=== PATIENT | female | born 1975 | race Asian ===

== ENCOUNTER 2017-01-16 05:10 | Day surgery (SDC) | payer OTHER ==
[2017-01-16] MEDS ORDERED: SUCCINYLCHOLINE CHLORIDE 200 MG/10 ML VIAL ONE (08:09)
[2017-01-16] MEDS ORDERED: MIDAZOLAM HCL 2 MG/2 ML SINGLE DOSE VIAL ONE (08:09)
[2017-01-16] MEDS ORDERED: PROPOFOL 20 ML ONE (08:09)
[2017-01-16] MEDS ORDERED: IBUPROFEN 800 MG/8 ML IJ IVPB PRN (08:15)
--- NOTE | 2017-01-16 08:15 | HP ---
Admitting History and Physical - Admission History of Present Illness: 41 yo desiring permanent sterilization rejects all forms of non-permanent control s/p right salpingectomy in the past History Source: Patient Limitations to Obtaining History: No Limitations - Past Medical History Cardiovascular: Yes: HTN Pulmonary: No: Asthma Gastrointestinal: No: GERD ...LMP: 01/06/17 ...: No Heme/Onc: No: Anemia - Past Surgical History Additional Past Surgical History: CD x 3 LS R salingectomy LS cholecystectomy - Smoking History Smoking history: Never smoked Have you smoked in the past 12 months: No Aproximately how many cigarettes per day: 0 - Alcohol/Substance Use Hx Alcohol Use: No - Social History History of Recent Travel: No Home Medications - Allergies Allergies/Adverse Reactions: Allergies Allergy/AdvReac Type Severity Reaction Status Date / Time No Known Allergies Allergy Verified 01/16/17 07:11 - Home Medications Home Medications: Ambulatory Orders Ferrous Sulfate [Feosol] 325 mg PO DAILY #0 tablet 08/06/12 Amlodipine Besylate 5 mg PO DAILY 01/13/17 Ascorbic Acid [Vitamin C -] 500 mg PO DAILY 01/13/17 Cholecalciferol (Vitamin D3) [Vitamin D3 -] 1,000 unit PO DAILY 01/13/17 Nitrofurantoin Macrocrystal [Nitrofurantoin] 100 mg PO BID 01/13/17 Valsartan 160 mg PO DAILY 01/13/17 Family Disease History - Family Disease History Family History: Denies Review of Systems - Review of Systems Constitutional: reports: No Symptoms Cardiovascular: reports: No Symptoms Respiratory: reports: No Symptoms Gastrointestinal: reports: No Symptoms Genitourinary: reports: No Symptoms Musculoskeletal: reports: No Symptoms Integumentary: reports: No Symptoms Neurological: reports: No Symptoms Endocrine: reports: No Symptoms Psychiatric: reports: No Symptoms Physical Examination Vital Signs: Vital Signs Temperature 98.2 F 01/16/17 07:07 Pulse Rate 74 01/16/17 07:07 Respiratory Rate 20 01/16/17 07:07 Blood Pressure 113/72 01/16/17 07:07 O2 Sat by Pulse Oximetry (%) 99 01/16/17 07:06 Constitutional: Yes: Well Nourished, No Distress, Calm Cardiovascular: Yes: Regular Rate and Rhythm Respiratory: Yes: Regular, CTA Bilaterally Gastrointestinal: Yes: Normal Bowel Sounds, Soft Edema: No Integumentary: Yes: WNL Psychiatric: Yes: Alert, Oriented Assessment/Plan 41 yo for permanent sterilization, plan for ls left salpingectomy, possible bilateral salpingectomy 1. Reviewed risks of surgery including infection, bleeding damage to surrounding organs such as bowel, bladder and ureters. Discussed increasesd risk of surgical complication given hx/o multiple surgeries. Reviewed salpingectomy v tubal ligation, decreased risk of ovarian/ fallopian tube malignancy 2. Will proceed with OR
[2017-01-16] MEDS ORDERED: ceFAZolin SODIUM 1 GM VIAL IVPB ONE (08:30)
[2017-01-16] MEDS ORDERED: ROCURONIUM BROMIDE 50 MG/5 ML VIAL ONE (08:31)
[2017-01-16] MEDS ORDERED: ceFAZolin SODIUM 1 GM VIAL ONE (08:34)
[2017-01-16] MEDS ORDERED: DEXAMETHASONE SOD PHOSPHATE 4 MG/1 ML VIAL ONE (08:35)
[2017-01-16] MEDS ORDERED: ePHEDrine SULFATE 50 MG/1 ML AMPULE ONE (08:39)
[2017-01-16] MEDS ORDERED: HYDROmorphone HCL/PF 1 MG/ML VIAL (FOR PYXIS CHARGING ONLY) ONE (08:59)
[2017-01-16] MEDS ORDERED: ALBUTEROL SO4 6.7 GM HFA INHALER IH ONE (09:07)
[2017-01-16] MEDS ORDERED: GLYCOPYRROLATE 0.2 MG/1 ML VIAL ONE (09:26)
[2017-01-16] MEDS ORDERED: NEOSTIGMINE METHYLSULFATE 0.5 MG/ML - 10 ML MDV ONE (09:26)
--- NOTE | 2017-01-16 09:45 | OP ---
Operative Note - Note: Operative Date: 01/16/17 Pre-Operative Diagnosis: desiring permanent sterilization Operation: laparoscopic left salpingectomy Findings: absent right fallopian tubes, normal ovaries bilaterally, normal left fallopian tube, adhesions anterior lower uterine segment and right adnexa Post-Operative Diagnosis: Same as Pre-op Surgeon: Jesenia Bahena Management Consultant: Bernard Villaseñor Anesthesiologist/SYNOPTIC METEOROLOGIST: Dexter Bravo Anesthesia: General Specimens Removed: left fallopian tube Estimated Blood Loss (mls): 2 Drains, Volume Out (mls): 150 Fluid Volume Replaced (mls): 800 Operative Report Dictated: Yes
[2017-01-16] MEDS ORDERED: oxyCODONE HCL 5 MG TABLET PO PRN (09:57)
[2017-01-16] MEDS ORDERED: ONDANSETRON 4 MG/2 ML VIAL IVPUSH PRN (09:57)
[2017-01-16] MEDS ORDERED: ACETAMINOPHEN 325 MG TABLET (FP) PO PRN (09:57)
[2017-01-16] MEDS ORDERED: LACTATED RINGERS SOLUTION 1,000 ML IV SCH (10:00)
--- NOTE | 2017-01-16 10:44 | OP ---
DATE OF OPERATION: 01/16/2017 ATTENDING PHYSICIAN RESPONSIBLE TO SIGN REPORT: Ermelinda Padilla MD PREOPERATIVE DIAGNOSIS: Desiring permanent sterilization. POSTOPERATIVE DIAGNOSIS: Desiring permanent sterilization. SURGEON: Ermelinda Padilla MD UTILITY MAINTENANCE WORKER: Bernard Villaseñor MD ANESTHESIOLOGIST: Dexter Bravo DO ANESTHESIA: General. INTRAVENOUS FLUIDS GIVEN: 800. URINE OUTPUT: 150. ESTIMATED BLOOD LOSS: 2 mL. DISPOSITION: The patient was brought to the recovery room in stable condition. INDICATIONS: Patient is a 41-year-old 4, para 3, desiring permanent sterilization. She was counseled regarding laparoscopic tubal versus salpingectomy. She desired a salpingectomy for risk reduction of fallopian tube cancer in the future. She was counseled regarding risks, benefits, alternatives, and complications of procedure including infection, bleeding, damage to surrounding organs such as bowel, bladder, ureters, increased risk of surgical complications given multiple surgeries. She expressed understanding and was brought to the operating room. DESCRIPTION OF PROCEDURE: When anesthesia was found to be adequate, patient was prepped and draped in a normal sterile fashion, placed in dorsal supine position using Chaim stirrups. A Graves speculum was placed in the patients vagina, and a HUMI uterine manipulator was placed and a Sharpe catheter was placed. Clear yellow urine was draining. Attention was brought to the patients abdomen. A 5-mm incision was made on the umbilicus, and a Veress needle was placed in the intraabdominal cavity. This was confirmed using water drop test. The abdomen was insufflated with carbon dioxide to an operative pressure of 18 mmHg. A 5-mm trocar was placed under direct visualization in the umbilical site. An abdominal survey revealed adhesions on the right adnexa, absent right fallopian tube, and prior scar with adhesions. Attention was brought to the left lower quadrant. A 5-mm trocar was placed under direct visualization. Products of conception were brought to the right lower quadrant, where a 5-mm trocar was placed under direct visualization. The left fallopian tube was followed to its fimbriated end, and this was resected using a Harmonic electro-scalpel. Bleeding from the pedicle was noted, which was cauterized using the Kleppenger bipolar electrocautery. Good hemostasis was noted. All instruments were removed from the patients abdomen. The pneumoperitoneum was released, all instruments were removed from the patients vagina, and the patient was awoken from anesthesia. The incision was closed using 4-0 Monocryl with Dermabond, and the patient was awoken from anesthesia and brought to the recovery room in stable condition. ERMELINDA PADILLA M.D. [id number] MTDD
[2017-01-16] MEDS ORDERED: ONDANSETRON 4 MG/2 ML VIAL ONE ×2 (12:31→18:13)
[2017-01-16 12:35] LABS: ARTERIAL BLD GAS O2 SATURATION 97.4 % (90-98.9); ARTERIAL BLOOD GAS BASE EXCESS -4.2 meq/l (-2-2); ARTERIAL BLOOD GAS HCO3 20.2 meq/L (22-26); ARTERIAL BLOOD GAS PO2 98.9 mmHg (80-100); ARTERIAL BLOOD GAS pH 7.36 (7.35-7.45)
[2017-01-16 12:36] LABS: ALLENS TEST POSITIVE; ART PUNCT SITE RIGHT RADIAL; LPM/O2% 21%; PT. ON O2? NO; TYPE OF O2 ROOM AIR
[2017-01-16 17:25] LABS: MCHC 31.6 g/dl (32.0-36.0); MEAN CELL VOLUME 63.2 fl (80-96); MEAN PLT VOLUME 8.7 fl (7.5-11.1); PLATELET COUNT 295 K/MM3 (134-434); RDW 20.3 % (11.6-15.6); WHITE BLOOD COUNT 10.8 K/mm3 (4.0-10.0)
[2017-01-16 18:14] LABS: HYPOCHROMIA 3+
[2017-01-16 18:15] LABS: ANISOCYTOSIS 1+; MICROCYTOSIS 2+; SCHISTOCYTES 1+
[2017-01-16] MEDS ORDERED: DEXTROSE 5%-0.45% SALINE 1,000 ML IV SCH (19:30)
[2017-01-16] MEDS ORDERED: ONDANSETRON 4 MG/2 ML VIAL IVPB PRN (19:30)
[2017-01-17 00:42] VITALS: BMI 33.4
[2017-01-17 08:37] VITALS: BP 104/63; PULSE 72; TEMP 98
[2017-01-17] MEDS ORDERED: IBUPROFEN 600 MG TABLET (FP) PO PRN (11:02)
--- NOTE | 2017-01-17 11:10 | PN ---
Progress Note (SOAP) - Subjective History of Present Illness: Patient admitted overnight for intractable nausea and vomiting. BS per RN overnight hypoactive Reports mild dizziness and headache No nausea or vomiting Tolerated ice chips and juice + Voiding No flatus No vaginal bleeding - Current Medications Current Medications: Active Medications Fentanyl (Sublimaze Injection -) 50 mcg IVPUSH [id number] PRN PRN Reason: PAIN Stop: 01/19/17 09:58 Last Admin: 01/16/17 10:15 Dose: 50 mcg Dextrose/Sodium Chloride (D5-1/2ns -) 1,000 mls @ 100 mls/hr IV ASDIR MAYKEL Ibuprofen (Caldolor Injection -) 800 mg IVPB Q8H PRN PRN Reason: FEVER Ibuprofen (Motrin -) 600 mg PO Q6H PRN PRN Reason: FEVER Ondansetron HCl (Zofran Injection) 4 mg IVPB Q4H PRN PRN Reason: NAUSEA AND/OR VOMITING Oxycodone HCl (Roxicodone -) 5 mg PO Q4H PRN PRN Reason: MILD PAIN - Objective Vital Signs: Vital Signs Temperature 98 F 01/17/17 07:30 Pulse Rate 72 01/17/17 07:30 Respiratory Rate 20 01/17/17 07:30 Blood Pressure 104/63 01/17/17 07:30 O2 Sat by Pulse Oximetry (%) 98 01/17/17 07:30 Constitutional: Yes: Well Nourished, No Distress, Calm Cardiovascular: Yes: Regular Rate and Rhythm Respiratory: Yes: Regular, CTA Bilaterally Gastrointestinal: Yes: Normal Bowel Sounds, Soft. No: Tenderness Genitourinary: No: Vaginal Bleeding Edema: No Neurological: Yes: Alert, Oriented Psychiatric: Yes: Alert Labs Lab Results: CBC, BMP 01/16/17 17:00 Assessment/Plan 41 yo admitted overnight for nausea / vomiting, likely ileus 1. Tolerating clears. + BS x4 quadrants. Will advance diet as tolerated 2. Encourage ambulation 3. Will continue motrin PRN 4. If tolerating PO, ambulating, voiding and passing gas, plan for discharge home today.
--- NOTE | 2017-01-17 13:03 | PN ---
Progress Note (short form) - Note Progress Note: Patient reports feels much better. Tolerating regular diet, passing flatus, s/p BM Reports no pain Voiding Patient for discharge home. Precautions reviewed
--- NOTE | 2017-01-19 14:14 | PATH ---
Surgical Pathology Report Patient Name: RADHA BRYANT [facility]. Rec. #: [id number] /Age/Gender: 1975 (Age: 41) / F Account: [id number] Location: [facility] Taken: 01/16/2017 Received: 01/16/2017 Reported: 01/19/2017 Physicians: Jesenia Bahena Specimen(s) Received LEFT FALLOPIAN TUBE AND LEFT PERITONEAL CYST Clinical History Voluntary sterilization Final Diagnosis LEFT FALLOPIAN TUBE, LAPAROSCOPIC SALPINGECTOMY: BENIGN FALLOPIAN TUBE INCLUDING FIMBRIATED END, WITH BENIGN SEROUS PARATUBAL CYST. Comment: See also [id number]. Electronically Signed Devyn Helton M.D. Gross Description Received in formalin labeled "left fallopian tube and peritoneal cyst," is a 3.3 cm in length fimbriated fallopian tube. The outer surface is valladares-pink and smooth with a focal attached pedunculated paratubal cyst measuring 0.6 cm greatest dimension. Sectioning of the fallopian tube reveals an unremarkable lumen. Math Coach sections are submitted in 2 cassettes as follows: 1-fimbria; 2-cross sections of fallopian tube and paratubal cyst. /01/16/2017 saudi01/16/2017
== END 2017-01-17 14:20 | disposition home or self-care (01) ==
LOC: JASU-SURG 05:10 → J3W 20:25 → JASU-SURG 01-17 14:20
PROVIDERS: ATTEND Obstetrics & Gynecology
PROC: 0U574ZZ Destruction of Bilateral Fallopian Tubes, Percutaneous Endoscopic Approach (ICD-10-PCS; principal; 2017-01-16 08:00)
DX: Z30.2 Encounter for sterilization (principal)
CPT/HCPCS: 36415; 36600; 82803; 84703; 85027; 86850; 86900; 86901; 88302-TC; 94760

== ENCOUNTER 2018-11-02 06:12 | Day surgery (SDC) | payer OTHER ==
[2018-11-01 08:39] VITALS: BMI 34.2
[2018-11-02] MEDS ORDERED: MIDAZOLAM HCL 2 MG/2 ML SINGLE DOSE VIAL ONE (07:26)
[2018-11-02] MEDS ORDERED: PROPOFOL 20 ML ONE ×2 (07:26)
--- NOTE | 2018-11-02 07:33 | HP ---
History & Physical Update - History History: No Change - Physical Physical: No Change - Assessment Assessment: No Change - Plan Plan: No Change (consent signed and witnessed H&P c/w PMD note from 10/26/18)
--- NOTE | 2018-11-02 07:34 | OP ---
Operative Note - Note: Operative Date: 11/02/18 Pre-Operative Diagnosis: 42yo P3 with Metrorrhagia, submucosal fibroid Operation: Hysteroscopy, Myomectomy Findings: Submucosal fibroid Post-Operative Diagnosis: Same as Pre-op Surgeon: Marjorie Toussaint Anesthesiologist/BARREL BUNG REMOVER AND DUMPER: Cristino Castle Anesthesia: MAC Estimated Blood Loss (mls): 5 Drains & Tubes with Location: Fluid defficit 100cc Drains, Volume Out (mls): 50 Fluid Volume Replaced (mls): 600 Operative Report Dictated: Yes
[2018-11-02] MEDS ORDERED: IBUPROFEN 600 MG TABLET (FP) PO PRN (07:35)
[2018-11-02] MEDS ORDERED: oxyCODONE HCL 5 MG TABLET PO PRN ×2 (07:35→09:08)
[2018-11-02] MEDS ORDERED: ONDANSETRON 4 MG/2 ML VIAL IVPUSH PRN ×2 (07:35→09:08)
[2018-11-02] MEDS ORDERED: IBUPROFEN 800 MG/8 ML IJ IVPB PRN (07:35)
[2018-11-02] MEDS ORDERED: ELECTROLYTE-148 SOLN 1,000 ML IV SCH (07:45)
[2018-11-02] MEDS ORDERED: KETOROLAC TROMETHAMINE 30 MG/1 ML VIAL ONE (07:48)
[2018-11-02] MEDS ORDERED: DEXAMETHASONE SOD PHOSPHATE 4 MG/1 ML VIAL ONE (07:48)
[2018-11-02] MEDS ORDERED: PROMETHAZINE HCL 25 MG/1 ML VIAL IVPUSH PRN (09:08)
[2018-11-02] MEDS ORDERED: LACTATED RINGERS SOLUTION 1,000 ML IV SCH (09:15)
--- NOTE | 2018-11-02 09:52 | OP ---
DATE OF OPERATION: 11/02/2018 PREOPERATIVE DIAGNOSIS: A 42-year-old para 3 with menorrhagia and submucosal fibroid. OPERATION: Hysteroscopy and myomectomy. SURGEON: Irina Crowder MD ANESTHESIOLOGIST: Cristino Castle MD ANESTHESIA: MAC.. FINDINGS: Submucosal anterior wall fibroid. DESCRIPTION OF THE OPERATIVE PROCEDURE: After assuring informed consent, patient was brought to the operating room she was placed in dorsal lithotomy position. Perineum and vagina were prepped and draped in sterile fashion. Mccurdy retractors were placed into the vagina. Cervix was visualized and grasped with single-tooth tenaculum, and gradually dilated with DeLee dilators to accommodate 6.3-mm Symphion hysteroscope. Symphion hysteroscope was introduced without any difficulty, and intrauterine contents were visualized as described above. The Symphion resectoscope was introduced through the operative channel, and overgrown endometrial lining together with anterior wall fibroid were resected without any difficulty. Shavings were collected and sent to Pathology. Subsequently, all instruments were removed from the uterus, cervix, and vagina. Excellent hemostasis was noted. Estimated blood loss 5 mL. Fluid deficit 100 mL. Urine output 50 mL. Patient received 600 mL of IV fluids. All instrument and sponge counts were correct x2. Patient was brought to the recovery room in stable condition. IRINA CROWDER M.D. [id number]
[2018-11-02 09:53] VITALS: TEMP 97.9
[2018-11-02 13:00] VITALS: BP 119/74; PULSE 67
--- NOTE | 2018-11-03 15:20 | PATH ---
Surgical Pathology Report Patient Name: RADHA BRYANT [facility]. Rec. #: [id number] /Age/Gender: 1975 (Age: 42) / F Account: [id number] Location: [facility] SURGICAL Taken: 11/02/2018 Received: 11/02/2018 Reported: 11/03/2018 Physicians: Marjorie Toussaint M.D. Specimen(s) Received RESECTED FIBROID Clinical History Endometrial hyperplasia Final Diagnosis RESECTED FIBROID: FRAGMENTS OF ENDOMETRIAL AND ENDOCERVICAL POLYPS. SEPARATE SMOOTH MUSCLE BUNDLES, MAY REPRESENT SUBMUCOSAL LEIOMYOMA IN A PROPER CLINICAL SETTING. SEPARATE PROLIFERATIVE TYPE ENDOMETRIUM. Electronically Signed Charan Mcnair M.D. Gross Description Received in formalin labeled "resected fibroid," is a 3.5 x 2.0 x 0.3 cm aggregate of valladares soft tissue fragments. The specimen is entirely submitted in 2 cassettes. /11/02/2018 saudi/11/02/2018
== END 2018-11-02 11:25 | disposition home or self-care (01) ==
LOC: JASU-SURG 06:12
PROVIDERS: ATTEND Obstetrics & Gynecology
PROC: 0UB98ZZ Excision of Uterus, Via Natural or Artificial Opening Endoscopic (ICD-10-PCS; principal; 2018-11-02 07:30)
DX: N92.0 Excessive and frequent menstruation with regular cycle (principal); D25.0 Submucous leiomyoma of uterus
CPT/HCPCS: 82962; 84703; 88305-TC; 94760